=== PATIENT | male | born 1950 | race Caucasian/White ===

== ENCOUNTER 2021-06-22 08:47 | Outpatient (REF) | payer MEDICARE, SELFPAY | END 2021-06-22 08:48 | disposition home or self-care (01) | LOC: HO.BBR 08:47 | PROVIDERS: Visit Provider Internal Medicine Hematology & Oncology | DX: Z13.89 Encounter for screening for other disorder (principal) ==

== ENCOUNTER 2021-07-02 09:03 | Outpatient (REF) | payer MEDICARE, SELFPAY | END 2021-07-02 09:04 | disposition home or self-care (01) | LOC: HO.BBR 09:03 | PROVIDERS: Visit Provider Internal Medicine Hematology & Oncology | DX: Z13.89 Encounter for screening for other disorder (principal) ==

== ENCOUNTER 2021-07-13 12:15 | Outpatient (REF) | payer MEDICARE, SELFPAY | END 2021-07-13 12:16 | disposition home or self-care (01) | LOC: HO.BBR 12:15 | PROVIDERS: Visit Provider Internal Medicine Hematology & Oncology | DX: Z13.89 Encounter for screening for other disorder (principal) ==

== ENCOUNTER 2021-07-21 12:10 | Outpatient (REF) | payer MEDICARE, SELFPAY ==
[2021-07-21 14:32] LABS: Ferritin 366 ng/mL (20-250)
== END 2021-07-21 12:11 | disposition home or self-care (01) ==
LOC: HO.BBR 12:10
PROVIDERS: Visit Provider Internal Medicine Hematology & Oncology
DX: E83.110 Hereditary hemochromatosis (principal)
CPT/HCPCS: 36415; 82728

== ENCOUNTER 2021-07-29 08:32 | Outpatient (REF) | payer MEDICARE, SELFPAY | END 2021-07-29 08:33 | disposition home or self-care (01) | LOC: HO.BBR 08:32 | PROVIDERS: Visit Provider Internal Medicine Hematology & Oncology | DX: Z13.89 Encounter for screening for other disorder (principal) ==

== ENCOUNTER 2021-08-05 09:02 | Outpatient (REF) | payer MEDICARE, SELFPAY | END 2021-08-05 09:03 | disposition home or self-care (01) | LOC: HO.BBR 09:02 | PROVIDERS: Visit Provider Internal Medicine Hematology & Oncology | DX: Z13.89 Encounter for screening for other disorder (principal) ==

== ENCOUNTER 2021-08-11 08:04 | Outpatient (REF) | payer MEDICARE, SELFPAY | END 2021-08-11 08:05 | disposition home or self-care (01) | LOC: HO.BBR 08:04 | PROVIDERS: Visit Provider Internal Medicine Hematology & Oncology | DX: Z13.89 Encounter for screening for other disorder (principal) ==

== ENCOUNTER 2021-08-19 08:00 | Outpatient (REF) | payer MEDICARE, SELFPAY ==
[2021-08-19 09:18] LABS: Ferritin 126 ng/mL (20-250)
== END 2021-08-19 08:01 | disposition home or self-care (01) ==
LOC: HO.BBR 08:00
PROVIDERS: Visit Provider Internal Medicine Hematology & Oncology
DX: E83.110 Hereditary hemochromatosis (principal)
CPT/HCPCS: 36415; 82728

== ENCOUNTER 2021-08-25 10:04 | Outpatient (REF) | payer MEDICARE, SELFPAY | END 2021-08-25 10:05 | disposition home or self-care (01) | LOC: HO.BBR 10:04 | PROVIDERS: PCP Internal Medicine; Visit Provider Internal Medicine Hematology & Oncology | DX: Z13.89 Encounter for screening for other disorder (principal) ==

== ENCOUNTER 2021-09-01 12:00 | Outpatient (REF) | payer MEDICARE, SELFPAY | END 2021-09-01 12:01 | disposition home or self-care (01) | LOC: HO.BBR 12:00 | PROVIDERS: PCP Internal Medicine; Visit Provider Internal Medicine Hematology & Oncology | DX: Z13.89 Encounter for screening for other disorder (principal) ==

== ENCOUNTER 2021-09-08 09:35 | Outpatient (REF) | payer MEDICARE, SELFPAY | END 2021-09-08 09:36 | disposition home or self-care (01) | LOC: HO.BBR 09:35 | PROVIDERS: Visit Provider Internal Medicine Hematology & Oncology | DX: Z13.89 Encounter for screening for other disorder (principal) ==

== ENCOUNTER 2021-09-21 07:56 | Outpatient (REF) | payer MEDICARE, SELFPAY ==
[2021-09-21 10:01] LABS: Ferritin 31 ng/mL (20-250)
== END 2021-09-21 07:57 | disposition home or self-care (01) ==
LOC: HO.BBR 07:56
PROVIDERS: Visit Provider Internal Medicine Hematology & Oncology
DX: E83.110 Hereditary hemochromatosis (principal)
CPT/HCPCS: 36415; 82728

== ENCOUNTER 2021-09-28 09:01 | Outpatient (REF) | payer MEDICARE, SELFPAY | END 2021-09-28 09:02 | disposition home or self-care (01) | LOC: HO.BBR 09:01 | PROVIDERS: Visit Provider Internal Medicine Hematology & Oncology | DX: Z13.89 Encounter for screening for other disorder (principal) ==

== ENCOUNTER 2021-10-06 11:01 | Outpatient (REF) | payer MEDICARE, SELFPAY | END 2021-10-06 11:02 | disposition home or self-care (01) | LOC: HO.BBR 11:01 | PROVIDERS: Visit Provider Internal Medicine Hematology & Oncology | DX: Z13.89 Encounter for screening for other disorder (principal) ==

== ENCOUNTER → 2023-08-22 09:09 | Outpatient (BNVA) | payer SELFPAY | PROVIDERS: PCP Internal Medicine; Visit Provider Physician Assistant | DX: Z02.79 Encounter for issue of other medical certificate (principal) ==

== ENCOUNTER 2025-07-30 13:20 | Outpatient (AMB) | payer MEDICARE, SELFPAY ==
--- NOTE | 2025-07-30 13:25 | HO.NEPHOV_ITS ---
Vital Signs 07/30/25 13:28 Height 6 ft 3 in Weight 205 lb 8 oz BMI 25.7 BP 130/70 Blood Pressure Location Lt brachial Position Sitting Pulse 102 H Pulse Source Pulse Oximeter Pulse Oximetry (%) 95 Oxygen Delivery Method Room Air Intake Visit Reasons: ENP- DX Elevated Creatinine-Conf Museum Assistant Required: No Accompanied by: Self / Same As Patient Allergies bee pollen Allergy (Verified 07/30/25 13:28) Runny Nose HPI Comments Details: I had the pleasure of seeing Epifanio in consultation for CALEB on CKD. He is 74 years of age with H/O long standing hypertension and CKD3 likely from HTN & vascular issues. He has been on losartan which is keeping his BP at goal. He has been having left knee issues and was meant to have left knee surgery but developed GIB needing initiation of PPI and upper endoscopy. His Hb has stabilized but he has not been taking any NSAID's now. It happened while he was taking NSAID's. His BP was running a bit low at that time. He did not have any nausea, vomiting, diarrhea, SOB, PND, orthopnea, hematuria, flank pain, edema or dizziness now. He feels improved and is hoping to have his knee operated in a few weeks. He has hereditary hemochromatosis and has not needed any phlebotomy lately. He C/O of a lot of knee pain especially after he stopped taking NSAID's due to GIB. [facility] Medical History (Updated 07/30/25 @ 18:52 by Fredy Santiago MD) Vitamin D deficiency Osteoarthritis of both knees Idiopathic osteoarthritis Lumbar spondylosis Low back pain Hypothyroidism Hypertension HLD (hyperlipidemia) Hiatal hernia Hemochromatosis, hereditary Erythrocytosis Erectile dysfunction Elevated ferritin Eczema Diverticulosis of colon CKD (chronic kidney disease) stage 3, GFR 30-59 ml/min Arthritis of knee Surgical History (Updated 07/30/25 @ 13:27 by Medina Marie MA) H/O endoscopy H/O prostatectomy H/O colonoscopy Hx of appendectomy Family History (Updated 07/30/25 @ 13:27 by Medina Marie MA) Mother Lung cancer Brother Diabetes mellitus Sister Diabetes mellitus Social History Alcohol intake: current Patient Tobacco Use Status: Former Tobacco user Review of Systems Const All systems reviewed & are unremarkable except as noted in HPI and below Physical Exam Vital Signs: Last Vital Signs Pulse 102 H 07/30/25 13:28 BP 130/70 07/30/25 13:28 Pulse Ox 95 07/30/25 13:28 Oxygen Delivery Method Room Air 07/30/25 13:28 BMI result Body Mass Index 25.7 Const General: comfortable and no acute distress Orientation/consciousness: patient oriented x3 HEENT Head: Yes normocephalic Mouth: Normal oral and palatal mucosa present Eyes EOM: EOMs intact bilaterally Neck Neck: Yes supple Resp Auscultation: clear to auscultation bilaterally Cardio Jugular venous distension: no JVD Rate: regular rate Heart sounds: Murmur heart sound present GI Palpation (GI): Soft to palpation Auscultation: normal bowel sounds General: Yes no CVA tenderness Back/Spine/Pelvis Back: no CVA tenderness Skin General skin exam: no rashes or lesions noted Neuro General: patient oriented x3 and moves all extremities Extrem General: Yes no pedal edema Assessment & Plan Assessment & Plan (1) CALEB (acute kidney injury): Code(s): N17.9 - Acute kidney failure, unspecified Category: Medical (2) CKD (chronic kidney disease) stage 3, GFR 30-59 ml/min: Code(s): N18.30 - Chronic kidney disease, stage 3 unspecified Category: Medical Qualifiers: Chronic kidney disease stage 3 subtype: stage 3a (GFR 45-59) Qualified Code(s): N18.31 - Chronic kidney disease, stage 3a (3) Hypertension: Code(s): I10 - Essential (primary) hypertension Category: Medical Qualifiers: Hypertension type: primary hypertension Qualified Code(s): I10 - Essential (primary) hypertension Plan CALEB on CKD due to tubular injury due to GIB (Was on ARB at the time of GIB with symptomatic dizziness) UO good; NO reason to suspect A/C obstruction/GN/AIN causing CALEB Serum creatinine settled close to baseline now; CKD likely due to HTN/vascular issues Could continue current dose of ARB; BP @ goal now and at home No NSAID's. Needs to hold ARB on the day of surgery Could restart ARB after surgery only when hemodyamics are stable ( and without orthostatics & needs to be back on normal diet) Needs renal function checked next day/2 days after knee surgery Ordered F/U blood work prior to next office visit; Will need USS later No reservations from a renal perspective to have knee surgery Answered all questions and follow up appointment given Orders: Orders Electrolytes 3 Months I10 - Essential (primary) hypertension, N17.9 - Acute kidney failure, unspecified, N18.31 - Chronic kidney disease, stage 3a UA and rflx microscopic 3 Months I10 - Essential (primary) hypertension, N17.9 - Acute kidney failure, unspecified, N18.31 - Chronic kidney disease, stage 3a Protein Creatinine Ratio, Ur 3 Months I10 - Essential (primary) hypertension, N17.9 - Acute kidney failure, unspecified, N18.31 - Chronic kidney disease, stage 3a Blood Urea Nitrogen 3 Months I10 - Essential (primary) hypertension, N17.9 - Acute kidney failure, unspecified, N18.31 - Chronic kidney disease, stage 3a Creatinine 3 Months I10 - Essential (primary) hypertension, N17.9 - Acute kidney failure, unspecified, N18.31 - Chronic kidney disease, stage 3a Coding Level of Care Code New Pt Level 4 (73929) Diagnoses CALEB (acute kidney injury) N17.9 Stage 3a chronic kidney disease N18.31 Chronic kidney disease stage 3 subtype: stage 3a (GFR 45-59) Primary hypertension I10 Hypertension type: primary hypertension
[2025-07-30 13:28] VITALS: BP 130/70; PULSE 102; O2SAT 95; BMI 25.7
--- OUTSIDE RECORDS SUMMARY | 2025-07-30 16:07 | XMS_ITS | Clinical Summary ---
Author Organization [facility] Address [address] [place] [address] Care Team Providers Care Protector Plate Attacher Name Role Phone Ernst Garcia MD Primary Care Provider Unavailab le Medications Medication Sig Dispensed Refills Start Date End Date Status levothyroxine (SYNTHROID) tablet 125 mcg Take 1 tablet (125 mcg total) by mouth every morning on an empty stomach. 0 Active simvastatin (ZOCOR) tablet 40 mg Take 1 tablet (40 mg total) by mouth every night at bedtime. 0 Active lisinopril (PRINIVIL,ZESTRIL) tablet 2.5 mg Take 1 tablet (2.5 mg total) by mouth daily. 0 Active Active Problems Problem Noted Date Diagnosed Date Hemochromatosis, hereditary 06/08/2021 CKD (chronic kidney disease) stage 3, GFR 30-59 ml/min 07/08/2016 Low back pain 07/08/2016 Overview: And SI joint dysfunction Lumbar spondylosis 07/08/2016 Overview: PSS Hiatal hernia 05/06/2016 History of prostate cancer 05/06/2016 Overview: Dr. Salinas--- s/p prostatecomy, last PSA was 0.1 in 12/2015 PSA 0.1 Hyperlipidemia 05/06/2016 Hypothyroidism 05/06/2016 Resolved Problems Problem Noted Date Diagnosed Date Resolved Date Erythrocytosis 03/23/2021 09/07/2021 High serum ferritin 03/23/2021 09/07/20 21 Family History Medical History Relation Name Comments Cancer Mother Relation Name Status Comments Mother Social History Tobacco Use Types Packs/Day Years Used Date Smoking Tobacco: Former Smokeless Tobacco: Never Alcohol Use Standard Drinks/Week Comments Yes 0 (1 standard drink = 0.6 oz pur e alcohol) Sex and Gender Information Value Date Recorded Sex Assigned at Not on file Gender Identity Not on file Sexual Orientation Not on file Job Start Date Occupation Industry Not on file Not on file Not on file Last Filed Vital Signs Vital Sign Reading Time Taken Comments Blood Pressure 129/74 02/19/2024 1:11 PM EDT Pulse 76 02/19/2024 1:11 PM EDT Temperature 36.9 C (98.4 F) 02/19/2024 1:11 PM EDT Respiratory Rate - - Oxygen Saturation 98% 02/19/2024 1:11 PM EDT Inhaled Oxygen Concentration - - Weight 94.3 kg (208 lb) 02/19/2024 1:11 PM EDT Height 190.5 cm (6' 3 ) 02/19/2024 1:11 PM EDT Body Mass Index 26 02/19/2024 1:11 PM EDT Plan of Treatment Health Maintenance Due Date Last Done Comments Hepatitis C Screening 1950 COVID-19 Vaccine (#1) 03/24/1951 Depression Screening 1963 Preventative Health Evaluation 1969 Colon Cancer Screening (Colonoscopy) 1996 Shingrix-Zoster Vaccine (1 of 2) 2001 Fall Risk Assessment 2016 Influenza Vaccine (#1) 2025 1, 06/12/2020, 11/20/2019, Additional history exists RSV Adult > 60+ Yrs or (1 - 1-dose 75+ series) 2026 DTap / Tdap / Td (2 - Td or Tdap) 06/16/2027 06/16/2017 Pneumococcal Vaccine Completed 07/16/2018, 06/16/20 17 Hepatitis B Vaccines Aged Out No long er eligible based on patient's age to complete this topic RSV Ped < 20 months Aged Out No longe r eligible based on patient's age to complete this topic Care Teams Protector Plate Attacher Relationship Specialty Start Date End Date Ernst Garcia MD PCP - General Internal Medicine 04/04/22
--- OUTSIDE RECORDS SUMMARY | 2025-07-30 16:07 | XMS_ITS | Data Portability ---
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 Josue who was available but who did not see the patient. HPI: Patient comes in for recheck of bilateral knee pain. Has known osteoarthritis in the lateral compartment of the knee(s). Been treated conservatively with cortisone injection to this point with 2 months relief of symptoms. No new injury or modalities. Also benefits greatly from viscosupplementat ion. Last received gel in September which helped him with most of his symptoms. He is still having pain at night. Past family, medical, social history and review of systems has been reviewed, updated and is located in the patient s chart. Examination:The patient is well appearing and in no apparent distress. Alert and oriented x3. Vital signs per intake sheet. Examination of the bilateral knee reveals Moderate effusion. No erythema or warmth. Decreased range of motion. slight valgus deformity. Point tender over the lateral joint line. Calf soft and nontender. 4+/5 strength of knee flexion extension. Impression: Osteoarthritis, bilateral knee Plan: Nature of the diagnosis discussed with the patient today. Both surgical and nonsurgical options were reviewed. Conservative measures were discussed at length including but not limited to physical therapy, bracing, anti-inflammatori es and injection therapies. Please see the procedure note for documentation about the procedure performed today. Follow-up with us in 3 months for discussion of continued conservative management versus surgical management. [email or web address] Not available 12/09/2024 09:47:00 03/13/2025 03/13/2025 I am seeing the patient today under the supervision of Dr. Hidalgo who was available but who did not see the patient. HPI: Patient comes in for recheck of bilateral knee pain. Has known osteoarthritis in the lateral compartment of the knee(s). Been treated conservatively with cortisone injection to this point with 2 months relief of symptoms. No new injury or modalities. Also benefits greatly from viscosupplementat ion. Last received gel in September which helped him with most of his symptoms. He is still having pain at night. Past family, medical, social history and review of systems has been reviewed, updated and is located in the patient s chart. Examination:The patient is well appearing and in no apparent distress. Alert and oriented x3. Vital signs per intake sheet. Examination of the bilateral knee reveals Moderate effusion. No erythema or warmth. Decreased range of motion. slight valgus deformity. Point tender over the lateral joint line. Calf soft and nontender. 4+/5 strength of knee flexion extension. Impression: Osteoarthritis, bilateral knee Plan: Nature of the diagnosis discussed with the patient today. Both surgical and nonsurgical options were reviewed. Conservative measures were discussed at length including but not limited to physical therapy, bracing, anti-inflammatori es and injection therapies. Please see the procedure note for documentation about the procedure performed today. Follow-up with us in 3 months for discussion of continued conservative management versus surgical management. [email or web address] Not available 03/13/2025 07:57:08 Plan of Treatment Reminders Order Date Submit Date Provider Last Modified By Organization Details Last Modified Time Details Appointments None record ed. Lab None record ed. Referral None record ed. Procedures None record ed. Surgeries None record ed. Imaging None record ed. Medication Orders None record ed. Patient TargetsNo targets recorded. Patient InstructionsNo instructions recorded. Reason for Referral None Reported. Problems Name Problem SNOMED Code Status Onset Date Resolution Date Notes Provider Name and Address Organization Details Recorded Time Idiopathi c osteoarth ritis 569734172 Active 2017 Problem Code: M17.11; Problem Code Type: ICD-10; Status: 'A'; Not Available [facility] 11:12:40 Bilateral osteoarth ritis of knees [id number] 107 Active 2023 Kamilah Reynoso, PT [address], [place], [address] , [facility] 4 09:16:06 Problem Notes None recorded. Procedures Surgical History Date Name Laterality Status Provider Name and Address Organization Details Recorded Time 5 JZKNEE INJ Herb completed Marcos Holm PA-C [address], [place], [address], [facility] 03/13/2025 07:56:55 5 JZKNEE INJ Herb completed Marcos Holm PA-C [address], [place], [address], [facility] 12/09/2024 07:45:20 5 Hyalgan 5 Series Knee Injection completed Nneka Orellana PA-C [address], [place], [address], [facility] 11/05/2024 10:12:04 5 Hyalgan 5 Series Knee Injection completed Nneka Orellana PA-C [address], [place], [address], [facility] 10/29/2024 12:56:18 5 Hyalgan 5 Series Knee Injection completed Sunita Mari PA-C [address], [place], [address], [facility] 10/22/2024 16:21:22 5 Hyalgan 5 Series Knee Injection completed Nneka Orellana PA-C [address], [place], [address], [facility] 10/14/2024 13:07:38 5 Hyalgan 5 Series Knee Injection completed Nneka Orellana PA-C [address], [place], [address], [facility] 10/08/2024 13:08:26 5 [id number] Therapeutic Exercise (1:1) completed Kamilah Reynoso, PT [address], [place], [address], [facility] 09/19/2024 13:33:17 4 JZKNSHENG INJ Herb completed Marcos Holm PA-C [address], [place], [address], [facility] 09/16/2024 13:53:43 4 [id number] Therapeutic Exercise (1:1) cancelled Kamilah Reynoso, PT [address], [place], [address], [facility] 09/10/2024 10:19:09 4 [id number] Therapeutic Exercise (1:1) completed Lizabeth Min, GLOBAL PROGRAM DIRECTOR [address], [place], [address], [facility] 09/04/2024 15:08:54 4 44425 Therapeutic Exercise (1:1) completed Lizabeth Min, GLOBAL PROGRAM DIRECTOR [address], [place], [address], [facility] 08/28/2024 18:52:59 4 49142 Therapeutic Exercise (1:1) completed Kamilah Reynoso, PT [address], [place], [address], [facility] 08/21/2024 10:28:55 4 01062 Therapeutic Exercise (1:1) completed Lizabeth Min, GLOBAL PROGRAM DIRECTOR [address], [place], [address], [facility] 08/20/2024 16:24:54 4 40402 Therapeutic Exercise (1:1) completed Kamilah Reynoso, PT [address], [place], [address], [facility] 08/07/2024 15:34:14 4 50624 Therapeutic Exercise (1:1) completed Lizabeth Krishnasak, GLOBAL PROGRAM DIRECTOR [address], [place], [address], [facility] 08/06/2024 13:06:48 4 97408 Therapeutic Exercise (1:1) completed Lizabeth Krishnasak, GLOBAL PROGRAM DIRECTOR [address], [place], [address], [facility] 07/31/2024 15:46:48 4 73962 Therapeutic Exercise (1:1) completed Lizabeth Krishnasak, GLOBAL PROGRAM DIRECTOR [address], [place], [address], [facility] 07/29/2024 09:43:38 4 53154 Therapeutic Exercise (1:1) completed Lizabeth Krishnasak, GLOBAL PROGRAM DIRECTOR [address], [place], [address], [facility] 07/29/2024 09:40:18 4 80413 Therapeutic Exercise (1:1) completed Lizabeth Krishnasak, GLOBAL PROGRAM DIRECTOR [address], [place], [address], [facility] 07/24/2024 09:57:12 4 85859 Therapeutic Exercise (1:1) completed Lizabeth Jasak, GLOBAL PROGRAM DIRECTOR [address], [place], [address], [facility] 07/17/2024 18:31:09 4 31939 Therapeutic Exercise (1:1) cancelled Kamilah Wing, PT [address], [place], [address], [facility] 07/10/2024 16:05:39 4 62207: Low complexity PT Eval cancelled Kamilah Wing, PT [address], [place], [address], [facility] 07/10/2024 16:05:39 4 22767 Therapeutic Exercise (1:1) cancelled Kamilah Reynoso, PT [address], [place], [address], [facility] 07/09/2024 08:43:45 4 80112 Therapeutic Exercise (1:1) completed Kamilah Reynoso, PT [address], [place], [address], [facility] 06/28/2024 09:16:00 4 79479: Low complexity PT Eval completed Kamilah Reynoso, PT [address], [place], [address], [facility] 06/28/2024 09:15:56 4 Knee Kenalog 40 1cc Injection, Bilateral completed Ino Garcia PA-C [address], [place], [address], [facility] 06/05/2024 15:43:28 4 Knee Kenalog 40 2cc Injection, Bilateral completed Ino Garcia PA-C [address], [place], [address], [facility] 02/22/2024 08:21:50 Imaging Results None recorded. Procedure Notes None recorded. Medical Equipment None Reported. Allergies No known drug allergies Medications Name Sig Start Date Stop Date Status Note LastModified by Organization Details LastModified Time losartan 50 mg tablet TAKE 1 TABLET BY MOUTH DAILY active Not Available Not Available No t Available amlodipine 5 mg tablet TAKE 1 TABLET BY MOUTH DAILY active Not Available Not Available No t Available simvastatin 40 mg tablet TAKE 1 TABLET BY MOUTH AT BEDTIME active Not Available Not Available No t Available levothyroxin e 125 mcg tablet TAKE 1 TABLET BY MOUTH DAILY active Not Available Not Available No t Available fluocinonide 0.05 % topical solution active Not Available Not Available Not Available cholecalcife rol (vitamin D3) 50 mcg (2,000 unit) tablet TAKE 1 TABLET BY MOUTH ONCE DAILY active Not Available Not Available No t Available GaviLyte-G 236 gram-22.74 gram-6.74 gram-5.86 gram oral solution TAKE 4000ML BY MOUTH SINGLE DOSE 09/16 completed Not Available Not Available Not Available PreviDent 5000 Booster Plus 1.1 % dental paste BRUSH TEETH 2 - 3 TIMES PER DAY WITH A PEA SIZED AMOUNT FOR 2 MINUTES active Not Available Not Available No t Available Vitals Date Recorded Body height Body mass index (BMI) Body weight Provider Name and Address Organization Details Last Updated DateTime 10/22/2024 190.5 cm 25.4 kg/m2 08229.25 g Terry Sethi [facility] 10/22/2024 15:35:58 Date Recorded Body height Body mass index (BMI) Body weight Provider Name and Address Organization Details Last Updated DateTime 10/29/2024 190.5 cm 25.4 kg/m2 85935.25 g Chiomiguelangel Pisano [facility] 10/29/2024 14:54:52 Date Recorded Body height Body mass index (BMI) Body weight Provider Name and Address Organization Details Last Updated DateTime 11/05/2024 190.5 cm 25.4 kg/m2 18603.25 g KAYLIA L'HEUREUX [facility] 11/05/2024 15:36:41 Date Recorded Body height Body mass index (BMI) Body weight Provider Name and Address Organization Details Last Updated DateTime 12/09/2024 190.5 cm 25.6 kg/m2 46036.44 g Karuna Mendezton [facility] 12/09/2024 09:28:39 Date Recorded Body height Body mass index (BMI) Body weight Provider Name and Address Organization Details Last Updated DateTime 03/13/2025 190.5 cm 25.6 kg/m2 77924.44 g KAYLIA L'HEUREUX [facility] 03/13/2025 09:59:17 Social History None recorded. Functional Status None recorded. Mental Status None recorded. Family History Nothing Reported. Medical History Condition Response Thyroid Problems Y Kidney/Bladder Problems Y Arthritis Y Past Encounters Encounter ID Performer Location Encounter Start Date Encounter Closed Date Diagnosis/Indication Diagnosis SNOMED-CT Code Diagnosis ICD10 Code Diagnosis IMO Codes Diagnosis Note [id number] [facility] [address] [place] [address] 02/22/2024 09:28:42 02/22/2024 11:05:04 Bilateral osteoarthritis of knees [id number] 19107 M17.0 [id number] [facility] [address] [place] [address] 06/06/2024 09:21:56 06/06/2024 10:51:54 Bilateral osteoarthritis of knees 2868930482 19107 M17.0 [id number] Kamilah Wing, PT [facility] [address] [place] [address] 07/03/2024 14:45:54 07/04/2024 07:38:38 Bilateral osteoarthritis of knees [id number] [place] 157477.0 [id number] Lizabeth Jasak, GLOBAL PROGRAM DIRECTOR [facility] [address] [place] [address] 07/17/2024 14:44:51 07/17/2024 16:20:12 Bilateral osteoarthritis of knees 384576112[address] [place] 157477.0 [id number] Lizabeth Jasak, GLOBAL PROGRAM DIRECTOR [facility] [address] [place] [address] 07/19/2024 14:53:43 07/19/2024 15:34:09 Bilateral osteoarthritis of knees 8856388028[address] [place] 157477.0 [id number] Lizabeth Jasak, GLOBAL PROGRAM DIRECTOR [facility] [address] [place] [address] 07/24/2024 15:54:51 07/24/2024 16:23:40 Bilateral osteoarthritis of knees [id number] [address] [place] 157477.0 [id number] Lizabeth Jasak, GLOBAL PROGRAM DIRECTOR [facility] [address] [place] [address] 07/26/2024 15:53:55 07/29/2024 15:16:33 Bilateral osteoarthritis of knees 5753176937 19107 M17.0 [id number] Lizabeth Jasak, GLOBAL PROGRAM DIRECTOR [facility] [address] [place] [address] 07/31/2024 15:20:13 07/31/2024 15:42:37 Bilateral osteoarthritis of knees 0364870214 19107 M17.0 [id number] Lizabeth Jasak, GLOBAL PROGRAM DIRECTOR [facility] [address] [place] [address] 08/02/2024 15:20:21 08/02/2024 15:53:08 Bilateral osteoarthritis of knees 0261985621 19107 M17.0 [id number] Kamilah Wing, PT [facility] [address] [place] [address] 08/07/2024 15:17:41 08/07/2024 16:25:18 Bilateral osteoarthritis of knees 7954855831 19107 M17.0 [id number] Lizabeth Jasak, GLOBAL PROGRAM DIRECTOR [facility] [address] [place] [address] 08/14/2024 15:01:06 08/14/2024 16:06:14 Bilateral osteoarthritis of knees 5358476542 19107 M17.0 [id number] Kamilah Wing, PT [facility] [address] [place] [address] 08/21/2024 15:28:33 08/21/2024 16:22:22 Bilateral osteoarthritis of knees 0637724636 19107 M17.0 [id number] Lizabeth Jasak, GLOBAL PROGRAM DIRECTOR [facility] [address] [place] [address] 08/27/2024 14:25:25 08/27/2024 15:01:51 Bilateral osteoarthritis of knees 4511396688 19107 M17.0 [id number] Lizabeth Jasak, GLOBAL PROGRAM DIRECTOR [facility] [address] [place] [address] 09/04/2024 14:54:35 09/04/2024 16:02:58 Bilateral osteoarthritis of knees 8957823658 19107 M17.0 [id number] [facility] [address] [place] [address] 09/16/2024 15:47:57 10/01/2024 14:01:29 Primary gonarthrosis, bilateral 740389072 M17.0 [id number] Kamilah Reynoso, PT [facility] [address] [place] [facility] [place] [address] 09/20/2024 14:53:14 09/20/2024 15:11:25 Bilateral osteoarthritis of knees 9561714581 05036 M17.0 [id number] Nneka Orellana PA-C [facility] [place] [address] 10/08/2024 15:28:30 10/18/2024 11:32:09 Primary gonarthrosis, bilateral 268554050 M17.0 [id number] Nneka Orellana PA-C [facility] [address] [place] [address] 10/15/2024 15:26:36 10/28/2024 10:23:10 Primary gonarthrosis, bilateral 430217784 M17.0 [id number] [id number] Sunita ortega PA-C [facility] [address] [place] [address] 10/22/2024 15:29:12 10/30/2024 08:49:16 Primary gonarthrosis, bilateral 445118477 M17.0 [id number] Nneka Orellana PA-C [facility] [address] [place] [address] 10/29/2024 14:49:20 11/14/2024 13:48:30 Primary gonarthrosis, bilateral 192426449 M17.0 [id number] [id number] Nneka Orellana PA-C [facility] [address] [place] [address] 11/05/2024 15:30:45 11/21/2024 14:54:45 Primary gonarthrosis, bilateral 912608738 M17.0 [id number] Marcos Holm PA-C [facility] [address] [place] [address] 12/09/2024 09:23:47 12/24/2024 14:02:38 Primary gonarthrosis, bilateral 111636571 M17.0 [id number] [facility] [address] [place] [address] 03/13/2025 09:34:28 03/25/2025 15:01:45 Primary gonarthrosis, bilateral 338513038 M17.0 [id number] Health Concerns Section Related Observation LastModified by Organization Detai ls LastModified Time None Recorded Concern Status LastModified by Organization Details LastModified Time None Recorded Advance Directives Directive None Recorded Payers Insurance Date Sequence Insurance Name Policy Number Policy Perry Covered Member ID Perry Member ID Guarantor Name 03/25/2025 1 [facility]: MEDICARE PPO BLUE (MEDICARE REPLACEMENT PPO) [id number] Epifanio Meredith [id number] Epifanio Meredith Notes Date Note Type Note Provider Name and Address Organization Details Recorded Time 5 text/html ROS as noted in the HPI I am seeing the patient today under the supervision of Dr. Hill was available but who did not see the patient. Reason For Visit Patient is here today for viscosupplementation injection. Patient reports no adverse reaction from previous injections. Physical Findings Evaluation of the knees reveal no evidence of infection, no significant joint effusion, no warmth, or erythema. The injection sites are benign. Calves are supple and nontender. 4+/5 strength. Some discomfort with range of motion. Assessment Osteoarthritis of knee Plan Injection was administered in the office today. I recommend ice, restriction of activities and re-evaluation next week for follow up injection. Sunita Mari PA-C [address], [address], [facility] 10/22/2024 16:22:25 5 text/html ROS as noted in the HPI I am seeing the patient under the general supervision of Dr. Brewster who was available but who did not see the patient. HPI: Patient presents today for their Hyalgan # 4 injection(s) for treatment of their bilateral knee osteoarthritis. Patient continues to complain of knee pain. We will move forward with injection today. Physical exam:Gen.: Well-appearing, in no acute distress, alert and oriented x 3Extremity: Examination of patient's bilateral knee(s) demonstrates no overlying erythema, ecchymosis or edema. Crepitations appreciated throughout range of motion. Joint line tenderness noted throughout. Injection site(s) benign. Assessment: Bilateral knee osteoarthritis. Plan: Move forward with Hyalgan # 4 injection(s). See procedure note for details. Follow up 1 week Nneka Orellana PA-C [address], [place], [address], [facility] 10/29/2024 15:27:30 5 text/html ROS as noted in the HPI I am seeing the patient under the general supervision of Dr. Brewster who was available but who did not see the patient. HPI: Patient presents today for their Hyalgan # 5 injection(s) for treatment of their bilateral knee osteoarthritis. Patient continues to complain of knee pain. We will move forward with injection today. Physical exam:Gen.: Well-appearing, in no acute distress, alert and oriented x 3Extremity: Examination of patient's bilateral knee(s) demonstrates no overlying erythema, ecchymosis or edema. Crepitations appreciated throughout range of motion. Joint line tenderness noted throughout. Injection site(s) benign. Assessment: Bilateral knee osteoarthritis. Plan: Move forward with Hyalgan # 5 injection(s). See procedure note for details. Follow up as needed Nneka Orellana PA-C [address], [place], [address], [facility] 11/05/2024 15:45:41
== END 2025-07-30 13:54 | disposition home or self-care (01) ==
LOC: HO.HKA 13:21
PROVIDERS: PCP Internal Medicine; Visit Provider Internal Medicine Nephrology
DX: N17.9 Acute kidney failure, unspecified (principal); N18.31 Chronic kidney disease, stage 3a; I10 Essential (primary) hypertension
CPT/HCPCS: 99204

== ENCOUNTER → 2025-07-30 13:20 | Outpatient (BNVA) | payer MEDICARE, SELFPAY | PROVIDERS: PCP Internal Medicine; Visit Provider Internal Medicine Nephrology | DX: I10 Essential (primary) hypertension (principal); N17.9 Acute kidney failure, unspecified; N18.31 Chronic kidney disease, stage 3a | CPT/HCPCS: 99202 ==